=== PATIENT | female | born 1985 | race American Indian/Alaskan Native ===

== ENCOUNTER 2021-09-22 05:13 | Emergency (ER) | payer MEDICAID ==
[2021-09-22 05:40] VITALS: BP 122/85
--- NOTE | 2021-09-22 06:29 | Emergency Department Report ---
ED ENT HPI - General Chief complaint: Dental/Oral Stated complaint: DENTAL PAIN Time Seen by Provider: 09/22/21 06:07 Source: patient Mode of arrival: Ambulatory Limitations: No Limitations - History of Present Illness Initial comments: Patient present with a 2-day history of dental pain and a 1 day history of facial swelling. She has been having pain in the lower second molar for several weeks. About a week ago it broke. She thinks that it was rotten. She has a dentist appointment on the of this month. Patient states that she came in due to pain and increased facial swelling. The pain started to worsen 2 days ago. The facial swelling was really worse this morning. There is no trauma. She has no fevers or chills but there is no cough congestion. She states that this is isolated to the right side in the mandibular area. She took [id number] medication without symptomatic improvement. - Related Data Previous Rx's Medication Instructions Recorded Last Taken Type Metoclopramide HCl [Reglan] 10 mg PO Q6H PRN #20 tablet 11/16/13 Unknown Rx Pnv95/Ferrous Fumarate/FA 1 each PO QDAY #30 tablet 11/16/13 Unknown Rx [ Vitamins] Acetaminophen/Codeine [Tylenol 1 tab PO Q6H PRN #12 tab 09/22/21 Unknown Rx /Codeine # 3 tab] Penicillin V Potassium 500 mg PO 4XD #28 tab 09/22/21 Unknown Rx Allergies Allergy/AdvReac Type Severity Reaction Status Date / Time No Known Allergies Allergy Verified 09/22/21 05:40 ED Dental HPI - General Chief complaint: Dental/Oral Stated complaint: DENTAL PAIN Time Seen by Provider: 09/22/21 06:07 Source: patient Mode of arrival: Ambulatory Limitations: No Limitations - Related Data Previous Rx's Medication Instructions Recorded Last Taken Type Metoclopramide HCl [Reglan] 10 mg PO Q6H PRN #20 tablet 11/16/13 Unknown Rx Pnv95/Ferrous Fumarate/FA 1 each PO QDAY #30 tablet 11/16/13 Unknown Rx [ Vitamins] Acetaminophen/Codeine [Tylenol 1 tab PO Q6H PRN #12 tab 09/22/21 Unknown Rx /Codeine # 3 tab] Penicillin V Potassium 500 mg PO 4XD #28 tab 09/22/21 Unknown Rx Allergies Allergy/AdvReac Type Severity Reaction Status Date / Time No Known Allergies Allergy Verified 09/22/21 05:40 ED Review of Systems ROS: Stated complaint: DENTAL PAIN Other details as noted in HPI Comment: All other systems reviewed and negative Constitutional: denies: fever Eyes: denies: eye pain ENT: as per HPI. denies: throat pain Respiratory: denies: cough Cardiovascular: denies: chest pain Endocrine: denies: unexplained weight loss Gastrointestinal: denies: abdominal pain Genitourinary: denies: dysuria Musculoskeletal: denies: back pain Skin: denies: rash Neurological: denies: headache Hematological/Lymphatic: denies: easy bruising ED Past Medical Hx - Past Medical History Previous Medical History?: No Additional medical history: 6 months - Surgical History Past Surgical History?: Yes Additional Surgical History: - Family History Family history: no significant - Social History Smoking Status: Never Smoker Substance Use Type: None - Medications Home Medications: Home Medications Medication Instructions Recorded Confirmed Last Taken Type Metoclopramide HCl [Reglan] 10 mg PO Q6H PRN #20 tablet 11/16/13 Unknown Rx Pnv95/Ferrous Fumarate/FA 1 each PO QDAY #30 tablet 11/16/13 Unknown Rx [ Vitamins] Acetaminophen/Codeine [Tylenol 1 tab PO Q6H PRN #12 tab 09/22/21 Unknown Rx /Codeine # 3 tab] Penicillin V Potassium 500 mg PO 4XD #28 tab 09/22/21 Unknown Rx ED Physical Exam - General Limitations: No Limitations, Other (Pulse ox noted and normal) General appearance: alert, in no apparent distress, obese, other (Appears uncomfortable) - Head Head exam: Present: atraumatic, other (Right mandibular swelling without erythema or warmth. There is no fluctuance. There is some mild tenderness.) - Eye Eye exam: Present: normal appearance, PERRL, EOMI - ENT ENT exam: Present: mucous membranes moist, normal external ear exam, other (Dental caries diffusely with localized tenderness over the right lower second molar. There is evidence of a dental fracture consistent with a broken tooth. There is no gingival erythema or edema. There is no discrete abscess.) - Neck Neck exam: Present: normal inspection, lymphadenopathy (Right anterior cervical). Absent: meningismus - Respiratory Respiratory exam: Present: normal lung sounds bilaterally. Absent: respiratory distress - Cardiovascular Cardiovascular Exam: Present: regular rate, normal rhythm - Extremities Exam Extremities exam: Present: normal capillary refill - Back Exam Back exam: Present: full ROM - Neurological Exam Neurological exam: Present: alert, oriented X3, CN II-XII intact, normal gait. Absent: motor sensory deficit - Psychiatric Psychiatric exam: Present: normal affect, normal mood - Skin Skin exam: Present: warm, dry ED Course Vital Signs 09/22/21 05:38 Temperature 98.5 F Pulse Rate 81 Respiratory 18 Rate Blood Pressure 122/85 [Left] O2 Sat by Pulse 100 Oximetry - Reevaluation(s) Reevaluation #1: 09/22/21 06:40 Patient was discharged ED Medical Decision Making - Medical Decision Making Patient presents with dental pain and a buccal cellulitis. She has evidence of an odontogenic abscess. She was started on antibiotics. She had not been on antibiotics recently so there would be no suspicion for resistant infection. She does not appear to have airway compromise. There is no discernible or discrete abscess to be drained. She already has a dentist appointment and was encouraged to keep that appointment. Critical Care Time: No Critical care attestation.: If time is entered above; I have spent that time in minutes in the direct care of this critically ill patient, excluding procedure time. ED Disposition Clinical Impression: Apical alveolar abscess, Cellulitis of buccal space of mouth Disposition: 01 HOME / SELF CARE / HOMELESS Is pt being admited?: No Condition: Stable Instructions: Dental Abscess, Cellulitis, Adult, [id number] Additional Instructions: HAVE A SOFT DIET. KEEP THE DENTAL APPOINTMENT. RETURN FOR PROBLEMS. Prescriptions: Penicillin V Potassium 500 mg PO 4XD #28 tab Acetaminophen/Codeine [Tylenol /Codeine # 3 tab] 1 tab PO Q6H PRN #12 tab PRN Reason: Pain Referrals: PRIMARY CARE,MD [Primary Care Provider] - 3-5 Days
== END 2021-09-22 06:39 | disposition home or self-care (01) ==
LOC: ED 05:13
DX: K04.7 Periapical abscess without sinus (principal); K12.2 Cellulitis and abscess of mouth
CPT/HCPCS: 99282